=== PATIENT | male | born 1970 | race Caucasian/White ===

== ENCOUNTER 2020-10-29 14:43 | Inpatient (IN) | payer OTHER ==
[2020-10-29] MEDS ORDERED: P-EPHED 60MG/TRIPROLIDI 2.5MG TABLET PO PRN (22:19)
[2020-10-29] MEDS ORDERED: DICYCLOMINE HCL 10 MG CAPSULE PO PRN (22:19)
[2020-10-29] MEDS ORDERED: ACETAMINOPHEN 325 MG TABLET (FP) PO PRN ×2 (22:19)
[2020-10-29] MEDS ORDERED: MAG HYDROX/AL HYDROX/SIMETH 30 ML UNIT-DOSE CUP PO PRN (22:19)
[2020-10-29] MEDS ORDERED: METHOCARBAMOL 500 MG TABLET PO PRN (22:19)
[2020-10-29] MEDS ORDERED: NICOTINE POLACRILEX 2 MG GUM BUC PRN (22:19)
[2020-10-29] MEDS ORDERED: MAGNESIUM CITRATE 300 ML BOTTLE PO PRN (22:19)
[2020-10-29] MEDS ORDERED: MENTHOL/PHENOL 1 EACH UD MM PRN (22:19)
[2020-10-29] MEDS ORDERED: cloNIDine HCL 0.1 MG TABLET PO PRN (22:19)
[2020-10-29] MEDS ORDERED: METHADONE HCL 10 MG TABLET (FOR DETOX USE ONLY) PO ONE (22:19)
[2020-10-29] MEDS ORDERED: IBUPROFEN 400 MG TABLET (FP) PO PRN (22:19)
[2020-10-29] MEDS ORDERED: guaiFENesin 200 MG/10 ML 10 ML UNIT-DOSE CUPS PO PRN (22:19)
[2020-10-29] MEDS ORDERED: ONDANSETRON *ODT* 4 MG TABLET SL PRN (22:19)
[2020-10-29] MEDS ORDERED: chlordiazePOXIDE HCL 25 MG CAPSULE PO PRN (22:19)
[2020-10-29] MEDS ORDERED: BISMUTH SUBSALICYLATE 524 MG/30 ML UD PO PRN (22:19)
[2020-10-29] MEDS ORDERED: MAGNESIUM HYDROX 2400MG/30ML ORAL SUSPENSION 30 ML CUP PO PRN (22:19)
[2020-10-29 22:20] VITALS: BMI 30.4
[2020-10-29] MEDS ORDERED: chlordiazePOXIDE HCL 25 MG CAPSULE ONE (23:18)
[2020-10-29] MEDS ORDERED: METHADONE HCL 10 MG TABLET (FOR DETOX USE ONLY) ONE (23:18)
[2020-10-29] MEDS: chlordiazePOXIDE HCL 25 MG CAPSULE PO SCH (23:19)
[2020-10-29] MEDS: PANTOPRAZOLE 20 MG TABLET PO SCH (23:19)
[2020-10-30] MEDS ORDERED: chlordiazePOXIDE HCL 25 MG CAPSULE ONE (05:25)
[2020-10-30] MEDS: chlordiazePOXIDE HCL 25 MG CAPSULE PO SCH ×3 (05:30→18:07)
[2020-10-30] MEDS ORDERED: METHADONE HCL 5 MG TABLET (FOR DETOX USE ONLY) ONE (09:44)
[2020-10-30] MEDS ORDERED: METHADONE HCL 10 MG TABLET (FOR DETOX USE ONLY) ONE (09:44)
[2020-10-30] MEDS ORDERED: METHADONE (DETOX) 20 MG, METHADONE (DETOX) 5 MG PO ONE (10:00)
[2020-10-30] MEDS ORDERED: NICOTINE 14 MG/24 HOURS TOPICAL PATCH TD SCH (10:00)
[2020-10-30] MEDS ORDERED: PRENATAL VITAMINS W/ FOLIC ACID TABLET (FP) PO SCH (10:00)
[2020-10-30] MEDS: PANTOPRAZOLE 20 MG TABLET PO SCH (10:28)
[2020-10-30 11:39] LABS: HEMATOCRIT 37.8 % (35.4-49); HEMOGLOBIN 12.5 GM/dL (11.7-16.9); MCH 30.1 pg (25.7-33.7); MCHC 33.2 g/dl (32.0-35.9); MEAN CELL VOLUME 90.9 fl (80-96); MEAN PLT VOLUME 8.1 fl (7.5-11.1); PLATELET COUNT 244 K/MM3 (134-434); RBC 4.16 M/mm3 (4.00-5.60); RDW 14.1 % (11.9-15.9); WHITE BLOOD COUNT 8.3 K/mm3 (4.0-10.0)
[2020-10-30 11:48] LABS: POTASSIUM 4.3 mmol/L (3.5-5.1)
[2020-10-30 11:56] LABS: CALCIUM 8.6 mg/dL (8.5-10.1)
[2020-10-30 11:57] LABS: BLOOD UREA NITROGEN 27.2 mg/dL (7-18)
[2020-10-30 11:58] LABS: BILIRUBIN,TOTAL 0.5 mg/dL (0.2-1); TOT PROT 6.3 g/dl (6.4-8.2)
[2020-10-30 12:00] LABS: CREATININE 1.7 mg/dL (0.55-1.3)
[2020-10-30 12:58] LABS: HIV INTERPRETATION NEGATIVE (NEGATIVE)
[2020-10-30 17:50] VITALS: BP 159/91; PULSE 72; TEMP 97.5
[2020-10-30] MEDS ORDERED: MELATONIN 5 MG TABLETS PO SCH (22:00)
[2020-10-30] MEDS ORDERED: THIAMINE HCL 100 MG TABLET (FP) PO SCH (22:00)
[2020-10-31] MEDS ORDERED: chlordiazePOXIDE HCL 25 MG CAPSULE PO SCH (05:00)
[2020-10-31] MEDS ORDERED: METHADONE HCL 10 MG TABLET (FOR DETOX USE ONLY) PO ONE (10:00)
[2020-11-01] MEDS ORDERED: chlordiazePOXIDE HCL 10 MG CAPSULE PO PRN
[2020-11-01] MEDS ORDERED: chlordiazePOXIDE HCL 10 MG CAPSULE PO SCH (05:00)
[2020-11-01] MEDS ORDERED: METHADONE (DETOX) 10 MG, METHADONE (DETOX) 5 MG PO ONE (10:00)
[2020-11-02] MEDS ORDERED: chlordiazePOXIDE HCL 10 MG CAPSULE PO SCH (05:00)
[2020-11-02] MEDS ORDERED: METHADONE HCL 10 MG TABLET (FOR DETOX USE ONLY) PO ONE (10:00)
[2020-11-03] MEDS ORDERED: chlordiazePOXIDE HCL 10 MG CAPSULE PO ONE (05:00)
[2020-11-03] MEDS ORDERED: METHADONE HCL 5 MG TABLET (FOR DETOX USE ONLY) PO ONE (06:00)
== END 2020-10-30 19:46 | disposition left against medical advice (07) | DRG 770 ==
LOC: YASAS 14:43 → Y3N 10-30 09:05
PROVIDERS: ADMIT Allergy & Immunology; ATTEND Allergy & Immunology
PROC: HZ2ZZZZ Detoxification Services for Substance Abuse Treatment (ICD-10-PCS; principal; 2020-10-30)
DX: F11.23 Opioid dependence with withdrawal (principal); F10.230 Alcohol dependence with withdrawal, uncomplicated; F14.20 Cocaine dependence, uncomplicated; F17.210 Nicotine dependence, cigarettes, uncomplicated; F19.24 Other psychoactive substance dependence with psychoactive substance-induced mood disorder; K21.9 Gastro-esophageal reflux disease without esophagitis; B18.2 Chronic viral hepatitis C; R56.9 Unspecified convulsions; Z87.19 Personal history of other diseases of the digestive system; Z56.0 Unemployment, unspecified
CPT/HCPCS: 36415; 80053; 85027; 86780; 87389; 93005; 93010; C9803; J0735; U0003

== ENCOUNTER 2023-04-09 18:40 | Inpatient (IN) | payer OTHER ==
[2023-04-09 20:48] VITALS: BMI 25.0
[2023-04-09] MEDS ORDERED: BENZOCAINE/MENTHOL (CHLORASEPTIC ) LOZENGE MM PRN (22:56)
[2023-04-09] MEDS ORDERED: NALOXONE HCL (KLOXXADO) 8 MG SPRAY NS PRN (22:56)
[2023-04-09] MEDS ORDERED: DICYCLOMINE HCL 10 MG CAPSULE PO PRN (22:56)
[2023-04-09] MEDS ORDERED: IBUPROFEN 600 MG TABLET (FP) PO PRN (22:56)
[2023-04-09] MEDS ORDERED: ONDANSETRON *ODT* 4 MG TABLET SL PRN (22:56)
[2023-04-09] MEDS ORDERED: POLYETHYLENE GLYCOL (HEALTHYLAX) 3350 17 GM PACKET PO PRN (22:56)
[2023-04-09] MEDS ORDERED: P-EPHED 60MG/TRIPROLIDI 2.5MG TABLET PO PRN (22:56)
[2023-04-09] MEDS ORDERED: ACETAMINOPHEN 325 MG TABLET (FP) PO PRN (22:56)
[2023-04-09] MEDS ORDERED: METHOCARBAMOL 500 MG TABLET PO PRN (22:56)
[2023-04-09] MEDS ORDERED: MAG HYDROX/AL HYDROX/SIMETH 30 ML UNIT-DOSE CUP PO PRN (22:56)
[2023-04-09] MEDS ORDERED: NALOXONE HCL 0.4 MG/ML VIAL IM PRN (22:56)
[2023-04-09] MEDS ORDERED: LOPERAMIDE HCL 2 MG CAPSULE PO PRN (22:56)
[2023-04-09] MEDS ORDERED: BISMUTH SUBSALICYLATE 524 MG/30 ML PO PRN (22:56)
[2023-04-09] MEDS ORDERED: MAGNESIUM HYDROX 2400MG/30ML ORAL SUSPENSION 30 ML CUP PO PRN (22:56)
[2023-04-09] MEDS ORDERED: IBUPROFEN 400 MG TABLET (FP) PO PRN (22:56)
[2023-04-09] MEDS ORDERED: BENZONATATE 200 MG CAPSULE PO PRN (22:56)
[2023-04-09] MEDS ORDERED: guaiFENesin 600 MG TABLET.ER (FP) PO PRN (22:56)
[2023-04-09] MEDS ORDERED: NICOTINE POLACRILEX 2 MG GUM BUC PRN (22:56)
[2023-04-10] MEDS: PRENATAL VITAMINS W/ FOLIC ACID TABLET (FP) PO SCH (11:02)
[2023-04-10 11:39] LABS: HEMOGLOBIN 11.3 GM/dL (11.7-16.9); MCH 28.6 pg (25.7-33.7); MCHC 32.3 g/dl (32.0-35.9); MEAN CELL VOLUME 88.7 fl (80-96); MEAN PLT VOLUME 8.4 fl (7.5-11.1); PLATELET COUNT 211 10^3/uL (134-434); RBC 3.95 M/mm3 (4.00-5.60); RDW 14.4 % (11.9-15.9); WHITE BLOOD COUNT 6.7 K/mm3 (4.0-10.0)
[2023-04-10 11:40] LABS: POTASSIUM 5.6 mmol/L (3.5-5.1)
[2023-04-10 12:23] LABS: ALBUMIN 3.2 g/dl (3.4-5.0); CALCIUM 8.7 mg/dL (8.5-10.1)
[2023-04-10 12:24] LABS: BLOOD UREA NITROGEN 51.5 mg/dL (7-18)
[2023-04-10 12:28] LABS: BILIRUBIN,TOTAL 0.4 mg/dL (0.2-1); TOT PROT 6.7 g/dl (6.4-8.2)
[2023-04-10] MEDS ORDERED: PATIENT'S OWN MEDICATION (NON-FORMULARY) (Lisinopril [Lisinopril] 40 MG Tablet) PO SCH (15:00)
[2023-04-10] MEDS: THIAMINE HCL 100 MG TABLET (FP) PO SCH (22:32)
[2023-04-10] MEDS: MELATONIN 5 MG TABLETS PO SCH (22:34)
[2023-04-10] MEDS: hydrOXYzine PAMOATE 25 MG CAPSULE (FP) PO PRN (22:35)
[2023-04-10] MEDS ORDERED: MELATONIN 5 MG TABLETS PO ONE (23:35)
[2023-04-11] MEDS ORDERED: cloNIDine HCL 0.1 MG TABLET PO ONE (10:02)
[2023-04-11] MEDS ORDERED: BUPRENORPHINE HCL 150 MCG, BUPRENORPHINE HCL 75 MCG BC PRN (10:02)
[2023-04-11] MEDS ORDERED: BUPRENORPHINE HCL 150 MCG, BUPRENORPHINE HCL 75 MCG BC ONE (10:02)
[2023-04-11] MEDS: PRENATAL VITAMINS W/ FOLIC ACID TABLET (FP) PO SCH (10:29)
[2023-04-11 11:27] LABS: POTASSIUM 4.7 mmol/L (3.5-5.1)
[2023-04-11 12:06] LABS: BLOOD UREA NITROGEN 30.9 mg/dL (7-18); CALCIUM 9.2 mg/dL (8.5-10.1)
[2023-04-11 12:10] LABS: CREATININE 1.6 mg/dL (0.55-1.3)
[2023-04-11] MEDS: cloNIDine HCL 0.1 MG TABLET PO PRN (15:13)
[2023-04-11] MEDS: diazePAM 5 MG TABLET PO PRN (19:03)
[2023-04-11] MEDS: MELATONIN 5 MG TABLETS PO SCH (22:25)
[2023-04-11] MEDS: THIAMINE HCL 100 MG TABLET (FP) PO SCH (22:26)
[2023-04-11] MEDS: hydrOXYzine PAMOATE 25 MG CAPSULE (FP) PO PRN (22:26)
[2023-04-12] MEDS ORDERED: BUPRENORPHINE HCL 150 MCG, BUPRENORPHINE HCL 75 MCG BC PRN
[2023-04-12] MEDS: BUPRENORPHINE HCL 150 MCG, BUPRENORPHINE HCL 75 MCG BC SCH ×2 (06:14→17:58)
[2023-04-12] MEDS: PRENATAL VITAMINS W/ FOLIC ACID TABLET (FP) PO SCH (10:29)
[2023-04-12] MEDS: diazePAM 5 MG TABLET PO PRN (10:30)
[2023-04-12] MEDS: cloNIDine HCL 0.1 MG TABLET PO PRN (13:32)
[2023-04-12 21:47] VITALS: BP 150/80; PULSE 57; RESP 20; TEMP 98.4
[2023-04-13] MEDS ORDERED: BUPRENORPHINE HCL 450 MCG FILM BC SCH (06:00)
[2023-04-14] MEDS ORDERED: BUPRENORPHINE/NALOXONE 4 MG/1 MG FILM PACKET SL SCH (06:00)
[2023-04-15] MEDS ORDERED: BUPRENORPHINE/NALOXONE 8 MG/2 MG FILM PACKET SL ONE (06:00)
== END 2023-04-12 20:54 | disposition left against medical advice (07) | DRG 770 ==
LOC: YASAS 18:40 → Y3N 23:42
PROVIDERS: ADMIT Allergy & Immunology; ATTEND Allergy & Immunology
PROC: HZ2ZZZZ Detoxification Services for Substance Abuse Treatment (ICD-10-PCS; principal; 2023-04-10)
DX: F11.23 Opioid dependence with withdrawal (principal); F10.230 Alcohol dependence with withdrawal, uncomplicated; F14.20 Cocaine dependence, uncomplicated; F17.210 Nicotine dependence, cigarettes, uncomplicated; F19.24 Other psychoactive substance dependence with psychoactive substance-induced mood disorder; N18.30 Chronic kidney disease, stage 3 unspecified; D64.9 Anemia, unspecified
CPT/HCPCS: 36415; 80048; 80053; 85027; 86780; 87635; 87811

== ENCOUNTER 2023-09-18 16:30 | Inpatient (IN) | payer OTHER ==
[2023-09-18 17:08] VITALS: BMI 25.0
[2023-09-18] MEDS ORDERED: NALOXONE HCL (KLOXXADO) 8 MG SPRAY NS PRN (19:36)
[2023-09-18] MEDS ORDERED: BENZOCAINE/MENTHOL (CHLORASEPTIC ) LOZENGE MM PRN (19:36)
[2023-09-18] MEDS ORDERED: BISMUTH SUBSALICYLATE 524 MG/30 ML PO PRN (19:36)
[2023-09-18] MEDS ORDERED: P-EPHED 60MG/TRIPROLIDI 2.5MG TABLET PO PRN (19:36)
[2023-09-18] MEDS ORDERED: ONDANSETRON *ODT* 4 MG TABLET SL PRN (19:36)
[2023-09-18] MEDS ORDERED: MAG HYDROX/AL HYDROX/SIMETH 30 ML UNIT-DOSE CUP PO PRN (19:36)
[2023-09-18] MEDS ORDERED: LOPERAMIDE HCL 2 MG CAPSULE PO PRN (19:36)
[2023-09-18] MEDS ORDERED: NALOXONE HCL 0.4 MG/ML VIAL IM PRN (19:36)
[2023-09-18] MEDS ORDERED: IBUPROFEN 600 MG TABLET (FP) PO PRN (19:36)
[2023-09-18] MEDS ORDERED: hydrOXYzine PAMOATE 25 MG CAPSULE (FP) PO PRN (19:36)
[2023-09-18] MEDS ORDERED: ACETAMINOPHEN 325 MG TABLET (FP) PO PRN (19:36)
[2023-09-18] MEDS ORDERED: NICOTINE POLACRILEX 2 MG GUM BUC PRN (19:36)
[2023-09-18] MEDS ORDERED: DICYCLOMINE HCL 10 MG CAPSULE PO PRN (19:36)
[2023-09-18] MEDS ORDERED: guaiFENesin 600 MG TABLET.ER (FP) PO PRN (19:36)
[2023-09-18] MEDS ORDERED: BENZONATATE 200 MG CAPSULE PO PRN (19:36)
[2023-09-18] MEDS ORDERED: POLYETHYLENE GLYCOL (HEALTHYLAX) 3350 17 GM PACKET PO PRN (19:36)
[2023-09-18] MEDS ORDERED: MAGNESIUM HYDROX 2400MG/30ML ORAL SUSPENSION 30 ML CUP PO PRN (19:36)
[2023-09-18] MEDS ORDERED: IBUPROFEN 400 MG TABLET (FP) PO PRN (19:36)
[2023-09-18] MEDS: THIAMINE HCL 100 MG TABLET (FP) PO SCH (22:29)
[2023-09-18] MEDS: METHOCARBAMOL 500 MG TABLET PO PRN (22:29)
[2023-09-18] MEDS: MELATONIN 5 MG TABLETS PO SCH (22:29)
[2023-09-19] MEDS ORDERED: BUPRENORPHINE HCL 150 MCG, BUPRENORPHINE HCL 75 MCG BC PRN (10:16)
[2023-09-19] MEDS ORDERED: BUPRENORPHINE HCL 150 MCG, BUPRENORPHINE HCL 75 MCG BC ONE (10:16)
[2023-09-19] MEDS ORDERED: cloNIDine HCL 0.1 MG TABLET PO ONE (10:16)
[2023-09-19] MEDS: PRENATAL VITAMINS W/ FOLIC ACID TABLET (FP) PO SCH (10:32)
[2023-09-19 10:48] LABS: HEMATOCRIT 32.8 % (35.4-49); HEMOGLOBIN 10.7 GM/dL (11.7-16.9); MCH 28.9 pg (25.7-33.7); MCHC 32.7 g/dl (32.0-35.9); MEAN CELL VOLUME 88.3 fl (80-96); PLATELET COUNT 242 10^3/uL (134-434); RBC 3.72 M/mm3 (4.00-5.60); WHITE BLOOD COUNT 7.7 K/mm3 (4.0-10.0)
[2023-09-19 10:56] LABS: CHLORIDE 110 mmol/L (98-107); POTASSIUM 5.8 mmol/L (3.5-5.1); SODIUM 139 mmol/L (136-145)
[2023-09-19 11:06] LABS: CALCIUM 9.1 mg/dL (8.5-10.1)
[2023-09-19 11:07] LABS: ALBUMIN 2.9 g/dl (3.4-5.0); ANION GAP 4 mmol/L (4-13); BLOOD UREA NITROGEN 42.1 mg/dL (7-18); CO2 25 mmol/L (21-32); GLUCOSE,RANDOM 96 mg/dL (74-106)
[2023-09-19 11:10] LABS: CREATININE 1.9 mg/dL (0.55-1.3); SGOT/AST 11 U/L (15-37); SGPT/ALT 16 U/L (13-61)
[2023-09-19 11:12] LABS: BILIRUBIN,TOTAL 0.2 mg/dL (0.2-1); TOT PROT 6.4 g/dl (6.4-8.2)
[2023-09-19 11:13] LABS: ALK PHOS 91 U/L (45-117)
[2023-09-19] MEDS: LISINOPRIL 20 MG TABLET PO SCH (12:06)
[2023-09-19] MEDS ORDERED: cloNIDine HCL 0.1 MG TABLET PO PRN (14:16)
[2023-09-19 15:22] LABS: POTASSIUM 5.6 mmol/L (3.5-5.1)
[2023-09-19 15:24] LABS: BLOOD UREA NITROGEN 38.1 mg/dL (7-18)
[2023-09-19 15:27] LABS: CREATININE 1.6 mg/dL (0.55-1.3)
[2023-09-19] MEDS ORDERED: SODIUM POLYSTYRENE SULFONATE 15 GM/60 ML BOTTLE PO ONE (17:21)
[2023-09-19] MEDS: MELATONIN 5 MG TABLETS PO SCH (22:15)
[2023-09-19] MEDS: THIAMINE HCL 100 MG TABLET (FP) PO SCH (22:15)
[2023-09-19] MEDS: METHOCARBAMOL 500 MG TABLET PO PRN (22:16)
[2023-09-19] MEDS: diazePAM 5 MG TABLET PO PRN (22:17)
[2023-09-20] MEDS ORDERED: BUPRENORPHINE HCL 150 MCG, BUPRENORPHINE HCL 75 MCG BC PRN
[2023-09-20] MEDS: BUPRENORPHINE HCL 150 MCG, BUPRENORPHINE HCL 75 MCG BC SCH ×2 (05:25→17:55)
[2023-09-20] MEDS: PRENATAL VITAMINS W/ FOLIC ACID TABLET (FP) PO SCH (09:25)
[2023-09-20] MEDS: LISINOPRIL 20 MG TABLET PO SCH (09:25)
[2023-09-20] MEDS: diazePAM 5 MG TABLET PO PRN (09:57)
[2023-09-20 13:04] VITALS: BP 150/76; PULSE 62; RESP 16; TEMP 97.7
[2023-09-21] MEDS ORDERED: BUPRENORPHINE HCL 450 MCG FILM BC SCH (06:00)
[2023-09-22] MEDS ORDERED: BUPRENORPHINE/NALOXONE 4 MG/1 MG FILM PACKET SL SCH (06:00)
[2023-09-23] MEDS ORDERED: BUPRENORPHINE/NALOXONE 8 MG/2 MG FILM PACKET SL ONE (06:00)
== END 2023-09-20 16:24 | disposition left against medical advice (07) | DRG 770 ==
LOC: YASAS 16:30 → Y3N 20:03
PROVIDERS: ADMIT Allergy & Immunology; ATTEND Surgery
PROC: HZ2ZZZZ Detoxification Services for Substance Abuse Treatment (ICD-10-PCS; principal; 2023-09-18)
DX: F11.23 Opioid dependence with withdrawal (principal); F10.20 Alcohol dependence, uncomplicated; F14.20 Cocaine dependence, uncomplicated; F17.210 Nicotine dependence, cigarettes, uncomplicated; E87.5 Hyperkalemia; N28.9 Disorder of kidney and ureter, unspecified
CPT/HCPCS: 0241U-QW; 36415; 80048; 80053; 80307; 85027; 86780; 93005; 93010